=== PATIENT | male | born 1990 | race Two or more races ===

== ENCOUNTER 2016-10-11 21:43 | Emergency (ER) | payer SELFPAY ==
[~2016-10-11] VITALS: Ht 175.3 cm; Wt 149.7 kg
[2016-10-11] MEDS ORDERED: ACETAMINOPHEN 325 MG TAB PO ONE (22:15)
[2016-10-11 22:50] LABS: Basophils # (auto) 0 uL; Basophils % (auto) 0.1 % (0.0-2.0); Eosinophils # (auto) 0 uL; Eosinophils % (auto) 0.1 % (0.0-7.0); Hematocrit 47.3 % (41.0-53.0); Hemoglobin 15.9 g/dL (13.5-17.5); Lymphocytes # (auto) 0.9 uL; Lymphocytes % (auto) 5.4 % (10.0-50.0); Mean Corpuscular Hemoglobin 28.5 pg (28.0-32.0); Mean Corpuscular Hgb Conc. 33.8 g/dL (32.0-36.0); Mean Corpuscular Volume 84.6 fL (80.0-100.0); Mean Platelet Volume 7.9 fL (7.4-10.4); Monocytes # (auto) 0.7 uL; Monocytes % (auto) 4.1 % (0.0-12.0); Neutrophils # (auto) 14.4 uL; Neutrophils % (auto) 90.3 % (37.0-80.0); Platelet Count (auto) 347 10^3/uL (140-450); Red Cell Distribution Width 14.1 % (11.6-16.0); SUSPECT VIEW TRANSMISSION; White Blood Cell 15.9 10^3/uL (4.4-10.8)
[2016-10-11 23:12] LABS: Albumin 3.8 g/dL (3.4-5.0); BUN/Creatinine Ratio 8.7; Calcium 8.7 mg/dL (8.5-10.1); INR 1.11 (0.9-1.15); Partial Thromboplastin Time 27.8 sec (22.64-33.71); Potassium 3.4 mmol/L (3.5-5.1); Total Protein 8.3 g/dL (6.4-8.2)
[2016-10-12 02:37] LABS: Urine Bilirubin Negative (Negative); Urine Blood 1+ /uL (Negative); Urine Color Yellow (Yellow); Urine Glucose Normal (Normal); Urine Ketone Negative (Negative); Urine Mucus FEW (None Seen); Urine Nitrite Negative (Negative); Urine RBC 11 /hpf (0 - 3); Urine Squamous Epithelial Cell FEW /hpf (<5); Urine Urobilinogen Normal (Negative); Urine pH 6.5 (5.0-8.0)
[2016-10-12] MEDS ORDERED: VANCOMYCIN 1GM/250ML D5W 250 ML IV ONE (03:45)
[2016-10-12] MEDS ORDERED: SODIUM CHLORIDE 0.9% 2,000 ML IV ONE (03:45)
[2016-10-12 06:17] VITALS: BP 148/55
== END 2016-10-12 06:17 | disposition home or self-care (01) ==
LOC: EDBD 21:48 → ER 21:48
DX: L03.116 Cellulitis of left lower limb (principal); L03.115 Cellulitis of right lower limb; R00.0 Tachycardia, unspecified; E66.01 Morbid (severe) obesity due to excess calories; Z68.42 Body mass index [BMI] 45.0-49.9, adult
CPT/HCPCS: 36415; 71010; 80053; 81001; 83605; 85025; 85610; 85730; 87040; 94761; 96365; 96366; 99285; J3370; J7030

== ENCOUNTER 2021-03-29 10:42 | Emergency (ER) | payer MEDICAID, OTHER ==
[~2021-03-29] VITALS: Ht 175.3 cm; Wt 186.9 kg
[2021-03-29 13:16] VITALS: BP 154/98
== END 2021-03-29 13:30 | disposition home or self-care (01) ==
LOC: ER 10:42
DX: M54.41 Lumbago with sciatica, right side (principal)
CPT/HCPCS: 93971